=== PATIENT | female | born 1975 | race Two or more races ===

== ENCOUNTER 2018-11-19 16:51 | Emergency (ER) | payer MEDICAID ==
[~2018-11-19] VITALS: Ht 167.6 cm; Wt 106.1 kg
[2018-11-19 17:05] VITALS: Ht 167.6 cm; Wt 106.1 kg
[2018-11-19 19:38] VITALS: BP 130/77
== END 2018-11-19 19:38 | disposition home or self-care (01) ==
LOC: ED 16:51
DX: S16.1XXA Strain of muscle, fascia and tendon at neck level, initial encounter (principal); S43.491A Other sprain of right shoulder joint, initial encounter; M79.10 Myalgia, unspecified site; R03.0 Elevated blood-pressure reading, without diagnosis of hypertension; V49.88XA Car occupant (driver) (passenger) injured in other specified transport accidents, initial encounter; Y93.I9 Activity, other involving external motion; Y92.413 State road as the place of occurrence of the external cause; Y99.8 Other external cause status
CPT/HCPCS: Q0163